=== PATIENT | male | born 1970 | race Caucasian/White ===

== ENCOUNTER 2017-04-10 05:49 | Day surgery (SDC) | payer OTHER ==
[~2017-04-10] VITALS: Ht 165.1 cm; Wt 74.8 kg
[2017-04-10] MEDS ORDERED: LACTATED RINGERS 1,000 ML IV SCH (06:50)
[2017-04-10] MEDS ORDERED: BUPIVACAINE HCL/PF 0.5% (5MG/ML) 10ML ONE (07:18)
[2017-04-10] MEDS ORDERED: LIDOCAINE HCL 1% 20ML VIAL (Pyxis) INJ ONE ×2 (07:19→08:15)
[2017-04-10] MEDS ORDERED: FENTANYL CITRATE/PF 50MCG/ML 2ML VIAL ONE (07:35)
[2017-04-10] MEDS ORDERED: MIDAZOLAM HCL 2 MG/2 ML VIAL ONE (07:35)
[2017-04-10] MEDS ORDERED: NORMAL SALINE 0.9% 10 ML SYR ONE (07:48)
[2017-04-10] MEDS ORDERED: BACITRACIN 50,000 UNITS/VIAL ONE (07:49)
[2017-04-10] MEDS ORDERED: HYDROMORPHONE HCL/PF 2MG/ML CPJ IV PRN (08:00)
[2017-04-10] MEDS ORDERED: ONDANSETRON HCL 4MG/2ML VIAL IV PRN (08:00)
[2017-04-10] MEDS ORDERED: MEPERIDINE HCL/PF 25MG/ML CPJ IV PRN (08:00)
[2017-04-10] MEDS ORDERED: LABETALOL HCL 20MG/4ML CARPUJECT IV PRN (08:00)
[2017-04-10] MEDS ORDERED: SUCCINYLCHOLINE CHLORIDE 200MG/10ML VIAL IV ONE (08:15)
[2017-04-10] MEDS ORDERED: PROPOFOL 200MG/20ML VIAL IV ONE (08:15)
[2017-04-10] MEDS ORDERED: ROCURONIUM BROMIDE 10MG/ML VIAL 5ML IV ONE (08:15)
[2017-04-10] MEDS ORDERED: CEFAZOLIN SODIUM 1000MG/VIAL ONE (08:15)
[2017-04-10] MEDS ORDERED: SODIUM CHLORIDE 0.9% 10ML VIAL ONE (08:15)
[2017-04-10] MEDS ORDERED: ONDANSETRON HCL 4MG/2ML VIAL ONE (08:16)
[2017-04-10] MEDS ORDERED: DEXAMETHASONE 4MG/ML 1ML VIAL ONE (08:16)
[2017-04-10] MEDS ORDERED: NEOSTIGMINE METHYLSULFATE 1MG/ML 10 ML VIAL ONE (08:16)
[2017-04-10] MEDS ORDERED: GLYCOPYRROLATE 0.2 MG/ML 2ML VIAL ONE (08:16)
[2017-04-10] MEDS ORDERED: SKIN ADHESIVE 0.7 GM EA TOP ONE (08:45)
== END 2017-04-10 11:28 | disposition home or self-care (01) ==
LOC: OR 05:49
PROVIDERS: ATTEND Specialist
DX: K43.6 Other and unspecified ventral hernia with obstruction, without gangrene (principal); Z91.018 Allergy to other foods
CPT/HCPCS: 49561; 49568; 93005; A4216; C1781; G0168; J0330; J0690; J1100; J2250; J2405; J2710; J3010; J3490; J2704